=== PATIENT | male | born 1965 | race American Indian/Alaskan Native ===

== ENCOUNTER 2016-07-19 23:41 | Emergency (ER) | payer BC ==
[2016-07-20 00:37] LABS: Anion Gap 21 mmol/L; BUN/Creatinine Ratio 12.77; Blood Urea Nitrogen 23 mg/dL (9-20); Calcium 9.3 mg/dL (8.4-10.2); Carbon Dioxide 22 mmol/L (22-30); Chloride 99.7 mmol/L (98-107); Glucose 133 mg/dL (75-100); Potassium 4.3 mmol/L (3.6-5.0); Sodium 138 mmol/L (137-145)
[2016-07-20 00:38] LABS: Basophils % (Auto) 0.7 % (0.0-1.8); Eosinophils % (Auto) 2.4 % (0.0-4.3); Hemoglobin 13.4 gm/dl (11.8-15.2); Mean Corpuscular HGB Conc 34 % (32-34); Mean Corpuscular Hemoglobin 30 pg (28-32); Mean Corpuscular Volume 89 fl (84-94); Platelet Count 271 K/mm3 (140-440); White Blood Count 8.3 K/mm3 (4.5-11.0)
--- NOTE | 2016-07-20 06:56 | Emergency Department Report ---
ED Palpitations HPI - General Chief Complaint: Arrhythmia/Palpitations Stated Complaint: IRREGULAR BEATS Time Seen by Provider: 07/20/16 06:29 Source: patient Mode of arrival: Ambulatory Limitations: No Limitations - History of Present Illness Initial Comments: Patient is a 51-year-old male with a history of strokes 3, and hypertension presenting to the ER with palpitations described as "irregular heartbeat ". Patient reports she started feeling them around 10 PM last night, palpitations are intermittent with no associated chest pain. Patient reports he never had these type of feelings before. Patient does have a history of 3 CVAs with right -sided deficits. Patient reports he does have an appointment with his administrative fellow Dr. Gilmore in 4 days. Otherwise no fevers, chills, headaches, dizziness, vision changes, hearing changes, nausea, vomiting, diarrhea, chest pain, shortness of breath, abdominal pain, falls, syncope, travel, or sick contacts. MD Complaint: palpitations, irregular heart beat - Related Data Allergies Allergy/AdvReac Type Severity Reaction Status Date / Time No Known Allergies Allergy Unverified 07/19/16 23:58 ED Review of Systems ROS: Stated complaint: IRREGULAR BEATS Other details as noted in HPI Comment: All other systems reviewed and negative ED Past Medical Hx - Past Medical History Previous Medical History?: Yes Hx Hypertension: Yes Hx CVA: Yes (x3) Hx Diabetes: Yes - Surgical History Additional Surgical History: back - Social History Smoking Status: Never Smoker ED Physical Exam - General Limitations: No Limitations General appearance: alert, in no apparent distress - Head Head exam: Present: atraumatic, normocephalic - Eye Eye exam: Present: normal appearance - ENT ENT exam: Present: mucous membranes moist - Neck Neck exam: Present: normal inspection - Respiratory Respiratory exam: Present: normal lung sounds bilaterally. Absent: respiratory distress - Cardiovascular Cardiovascular Exam: Present: regular rate, normal rhythm. Absent: systolic murmur, diastolic murmur, rubs, gallop - GI/Abdominal GI/Abdominal exam: Present: soft, normal bowel sounds - Rectal Rectal exam: Present: deferred - Extremities Exam Extremities exam: Present: normal inspection - Back Exam Back exam: Present: normal inspection - Neurological Exam Neurological exam: Present: alert, oriented X3, CN II-XII intact, other (mild R sided facial droop, strength 5/5 bilaterally) - Psychiatric Psychiatric exam: Present: normal affect, normal mood - Skin Skin exam: Present: warm, dry, intact, normal color. Absent: rash ED Course Vital Signs 07/19/16 07/20/16 23:53 04:18 Temperature 98.5 F Pulse Rate 90 76 Respiratory 18 18 Rate Blood Pressure 148/95 140/94 O2 Sat by Pulse 97 100 Oximetry ED Medical Decision Making - Lab Data Result diagrams: 07/20/16 00:03 07/20/16 00:03 - EKG Data -: EKG Interpreted by Me (time 23:50) EKG shows normal: sinus rhythm (normal sinus rhythm), axis (normal axis), intervals (QTC 461 ms), QRS complexes (no LVH), ST-T waves (T-wave inversions in 1 aVL and V3 through V6, and II, no ST changes no STEMI) Rate: normal (86 bpm) - EKG Data When compared to previous EKG there are: previous EKG unavailable - Radiology Data Radiology results: image reviewed CXR: No acute findings as visualized by me - Medical Decision Making Results discussed with patient, instructed to follow up with his administrative fellow as planned in 4 days, return to the ED for worsening of symptoms or chest pain. Critical care attestation.: If time is entered above; I have spent that time in minutes in the direct care of this critically ill patient, excluding procedure time. ED Disposition Clinical Impression: Palpitations Disposition: DISCHARGED TO HOME OR SELFCARE Is pt being admited?: No Condition: Stable Instructions: Palpitations (ED) Referrals: KENZIE KANG MD [Primary Care Provider] - 3-5 Days
[2016-07-20 09:00] VITALS: BP 119/87
--- NOTE | 2016-07-20 09:39 | XRay Report ---
CHEST TWO VIEWS: 07/20/16 CLINICAL: Chest pain. COMPARISON: None FINDINGS: Normal heart and pulmonary vasculature. The lungs are normally expanded and clear.The bones and soft tissues are unremarkable. IMPRESSION: Normal chest.
== END 2016-07-20 09:01 | disposition home or self-care (01) ==
LOC: ED 23:41
DX: R00.2 Palpitations (principal); I10 Essential (primary) hypertension; E11.9 Type 2 diabetes mellitus without complications; Z86.73 Personal history of transient ischemic attack (TIA), and cerebral infarction without residual deficits
CPT/HCPCS: 36415; 71020; 80048; 83735; 84484; 85025; 93005; 93010; 99284